=== PATIENT | female | born 1990 | race African-American/Black ===

== ENCOUNTER 2017-09-03 12:53 | Emergency (ER) | payer MEDICAID ==
[~2017-09-03] VITALS: Ht 165.1 cm; Wt 108.9 kg
[2017-09-03] MEDS ORDERED: MEDROXYPROGESTE10 MG PO (13:09)
[2017-09-03 13:15] VITALS: BP 161/105
[2017-09-03] MEDS ORDERED: Norco 5mg/325mg tab ORAL ONE (13:45)
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
[2017-09-03] MEDS ORDERED: NORCO 5-325 TA1 EACH ORAL (14:18)
[2017-09-03] MEDS ORDERED: IBUPROFEN600 MG ORAL (14:18)
[2017-09-03 15:59] VITALS: BP 154/88
--- NOTE | 2017-09-04 05:02 | Diagnostic Imaging Report ---
Indications: Pain Technique: 3 views of the left hand Comparison: None Findings: There is a nondisplaced minimally angulated fracture of the distal shaft of the third proximal phalanx, best visualized on the lateral view. There is an oblique lucency of the fifth proximal phalangeal shaft on the AP view. This area is obscured on the lateral view. The joint spaces are preserved. Impression: Positive for third proximal phalangeal fracture. This agrees with the emergency room preliminary report Possible fifth proximal phalangeal fracture, as well. Correlate with clinical findings. This finding was discussed by phone with Dr. Reina at the time of interpretation
== END 2017-09-03 15:30 | disposition home or self-care (01) ==
LOC: EMR 13:40
DX: S62.643A Nondisplaced fracture of proximal phalanx of left middle finger, initial encounter for closed fracture (principal); Y04.0XXA Assault by unarmed brawl or fight, initial encounter; Y92.89 Other specified places as the place of occurrence of the external cause
CPT/HCPCS: 99283

== ENCOUNTER 2017-09-04 08:27 | Emergency (ER) | payer MEDICAID ==
[~2017-09-04] VITALS: Ht 165.1 cm; Wt 108.9 kg
[~2017-09-04 08:27] MED LIST: IBUPROFEN600 MG ORAL; MEDROXYPROGESTE10 MG PO; NORCO 5-325 TA1 EACH ORAL
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
[2017-09-04 09:40] VITALS: BP 128/85
--- NOTE | 2017-09-04 13:03 | Diagnostic Imaging Report ---
Indication: Pain Technique: FOOT COMPLETE LT Comparison: None Findings: There is no acute fracture or dislocation. Joint spaces and bony alignment are preserved. Well-circumscribed density adjacent to the cuboid may represent sequela of remote trauma or accessory ossicle. No focal soft tissue defect is appreciated. No radiopaque foreign body seen. Impression: No acute fracture or dislocation.
== END 2017-09-04 09:40 | disposition home or self-care (01) ==
LOC: EMR 08:45
DX: S90.122A Contusion of left lesser toe(s) without damage to nail, initial encounter (principal); S62.643A Nondisplaced fracture of proximal phalanx of left middle finger, initial encounter for closed fracture; Y04.0XXA Assault by unarmed brawl or fight, initial encounter; Y92.9 Unspecified place or not applicable
CPT/HCPCS: 99283

== ENCOUNTER 2019-02-01 08:10 | Emergency (ER) | payer BC, MEDICAID, OTHER ==
[~2019-02-01] VITALS: Ht 165.1 cm; Wt 99.8 kg
[2019-02-01] MEDS ORDERED: NKM (08:20)
--- NOTE | 2019-02-01 08:21 | NUR ---
ED Nurse Note: PT WALKED IN TO ER TODAY FROM HOME. AOX4. PT C/O INTERMITTENT RIGHT FOOT BIG TOE PAIN, 5/10 X 3 MONTHS AGO WHEN SHE FELL DOWN STAIRS. FULL ROM OF EXTREMITY AND DIGITS, CIRCULATION AND SENSATION INTACT, CAP REFILL <3 SECONDS, MUSCLE STRENGHT 5/5, GAIT STEADY, SKIN CLEAN, DRY, AND INTACT.
--- NOTE | 2019-02-01 08:39 | Emergency Room Report ---
History of Present Illness General Chief Complaint: Lower Extremity Injury Source: Patient Present Illness HPI Patient presents to the emergency department today complaining of right great toe pain. Patient states that she tripped on it 3 months ago and since then has had intermittent episodes of pain over her right great toe. She denies any swelling or deformity of this time states that it did swell up when she first fell. No other injuries noted. Patient denies any ankle pain or knee pain. Symptoms noted to be mild to moderate. No other modifying factors. No other associated signs and symptoms. No other complaints were noted. Allergies: Coded Allergies: No Known Allergies (Unverified , 02/01/19) Patient History Past Medical History: none Past Surgical History: none Pertinent Family History: none Social History: Denies: smoking, alcohol use, drug use Last Menstrual Period: 01/12/19 Reviewed Nursing Documentation: PMH: Agreed; PSxH: Agreed Nursing Documentation-PMH Past Medical History: No Stated History Review of Systems All Other Systems: negative except mentioned in HPI Physical Exam Vital Signs Date Time Temp Pulse Resp B/P (MAP) Pulse Ox O2 Delivery O2 Flow Rate FiO2 02/01/19 08:15 98.6 70 16 97 Room Air Sp02 EP Interpretation: reviewed, normal General Appearance: normal inspection, well appearing, no apparent distress, alert Head: atraumatic Eyes: bilateral eye normal inspection ENT: normal ENT inspection, hearing grossly normal, normal voice Neck: normal inspection, full range of motion, supple, no bony tend Respiratory: normal inspection, lungs clear, normal breath sounds, no respiratory distress, no retraction, no wheezing Cardiovascular #1: regular rate, rhythm, no edema Gastrointestinal: normal inspection, normal bowel sounds, non tender, soft, no guarding, no hernia Genitourinary: no CVA tenderness Musculoskeletal: normal inspection, back normal, normal range of motion Neurologic: normal inspection, alert, responsive, speech normal Psychiatric: normal inspection, judgement/insight normal, mood/affect normal Skin: normal inspection, normal color, no rash Medical Decision Making Diagnostic Impression: Primary Impression: Toe pain, right ER Course Patient presents to the emergency department today complaint right foot pain. Differential considerations include fracture dislocation versus strain. Given his presentation for the x-rays were indicated. X-rays were noted to be negative. Given x-rays negative patient symptoms could be consistent with strain or arthritis. Recommend outpatient follow-up. Will provide anti- inflammatories. Patient is advised to follow up with primary doctor in 2-3 days and return the emergency room for any worsening symptoms and as needed. Other X-Ray Diagnostic Results Other X-Ray Diagnostic Results : X-Ray ordered: Right foot x-ray # of Views/Limited Vs Complete: 2 View Indication: Pain Interpretation: no dislocation, no soft tissue swelling, no fractures Impression: No acute disease Electronically Signed by: Electronically signed by Zay Garcia MD Last Vital Signs Date Time Temp Pulse Resp B/P (MAP) Pulse Ox O2 Delivery O2 Flow Rate FiO2 02/01/19 08:15 98.6 70 16 97 Room Air Status: unchanged Disposition: HOME, SELF-CARE Condition: Stable Scripts Ibuprofen* (MOTRIN*) 600 Mg Tablet 600 MG ORAL Q8H PRN for For Pain, #20 TAB 0 Refills Prov: Zya Garcia MD 02/01/19 Zay Garcia MD February 01, 2019 08:39
[2019-02-01] MEDS ORDERED: IBUPROFEN600 MG ORAL (09:12)
[2019-02-01 09:25] VITALS: BP 128/82
--- NOTE | 2019-02-01 09:25 | NUR ---
ED Nurse Note:pt given dc aci and script with work note. amb steady gait aware and agrees to follow up with md if contiuned discomfort.
--- NOTE | 2019-02-01 11:40 | Diagnostic Imaging Report ---
Indication: Foot Pain Comparison: None Findings: 3 views of the right foot were obtained. No acute fractures, malalignment, erosions or periostitis are identified. Soft tissues are unremarkable. Impression: No acute findings.
== END 2019-02-01 09:25 | disposition home or self-care (01) ==
LOC: EMR 08:48
DX: M25.571 Pain in right ankle and joints of right foot (principal)
CPT/HCPCS: 99283

== ENCOUNTER 2019-05-21 22:34 | Emergency (ER) | payer BC, MEDICAID ==
[~2019-05-21] VITALS: Ht 167.6 cm; Wt 113.4 kg
[~2019-05-21 22:34] MED LIST changes: +NKM
--- NOTE | 2019-05-21 22:45 | NUR ---
ED Nurse Note: Recieved pt from home, here with c/o right foot, itching and pain x 3 weeks, pt states she thinks was bit by bug, applied benadryl cream and started burning, pain at 7/10, denies any other discomforts or complaints.
--- NOTE | 2019-05-22 00:14 | Emergency Room Report ---
History of Present Illness General Chief Complaint: Pain Source: Patient Present Illness HPI Disclaimer: Please note that this report is being documented using [employer] technology. This can lead to erroneous entry secondary to incorrect interpretation by the dictating instrument. HPI: This a 28-year-old otherwise healthy female presenting for evaluation of itching over the left foot. Symptoms have been present for approximately 2 weeks. She can recall no specific injury, no skin breakdown, no erythema, no swelling and no drainage, discharge or bleeding. She notes worsening itching over the left foot after applying a Benadryl cream and now describes the sensation as burning. Denies pain in the ankle. Denies itching in other body parts. Denies any shortness of breath, wheezing, chest tightness or throat closure sensation. PMH: Denies PSH: Denies Allergies: Denies Social Hx: Occasional THC use. Allergies: Coded Allergies: No Known Allergies (Unverified , 02/01/19) Patient History Last Menstrual Period: 04/20/19 Now: No Nursing Documentation-PMH Past Medical History: No History, Except For Review of Systems All Other Systems: negative except mentioned in HPI Physical Exam Vital Signs Date Time Temp Pulse Resp B/P (MAP) Pulse Ox O2 Delivery O2 Flow Rate FiO2 05/21/19 22:36 98.4 91 14 142/66 (91) 98 Room Air General: Awake and alert, no acute distress HEENT: NC/AT. EOMI. Resp: Normal work of breathing. Skin: Intact. No abrasions, laceration or rash over the exposed skin. There is no erythema, edema, discharge or breakdown over the midfoot. MSK: Normal tone and bulk. Moving all extremities. No obvious deformity. 2+ PT and DP pulses. Brisk capillary refill in the lower extremities. No tenderness in the midfoot, over the anterior posterior aspect of the medial or lateral malleolus. Full range of motion on plantar and dorsiflexion. Neuro: Awake and alert. Mentating appropriately. Medical Decision Making Diagnostic Impression: Primary Impression: Foot pain ER Course 28-year-old female presents for evaluation of itching and burning of the left foot. X-ray was performed which shows no fracture or dislocation. Patient be treated with steroid cream and instructed to no longer use the Benadryl ointment that originally caused her symptoms. She is requesting a note for work which we will provide. She can follow-up with her PMD as an outpatient. Last Vital Signs Date Time Temp Pulse Resp B/P (MAP) Pulse Ox O2 Delivery O2 Flow Rate FiO2 05/21/19 22:36 98.4 91 14 142/66 (91) 98 Room Air Disposition: HOME, SELF-CARE Condition: Stable Scripts Hydrocortisone 2% Cream (ANTI-ITCH 2% CREAM) Y Cr 28 GM TP TID for 7 Days, GM Prov: Garland López MD 05/22/19 Referrals: NOT CHOSEN [facility]/,REFERRING (PCP) Garland López MD May 22, 2019 00:14
[2019-05-22] MEDS ORDERED: ANTI-ITCH28 G1 TP (00:39)
[2019-05-22 00:45] VITALS: BP 131/63
--- NOTE | 2019-05-22 00:50 | NUR ---
ER DISCHARGE NOTE: Patient is cleared to be discharged per ERMD, pt is aox4, on room air, with stable vital signs. pt was given dc and prescription instructions, pt was able to verbalize understanding, pt id band removed without complications. pt is able to ambulate with steady gait. pt took all belongings.
--- NOTE | 2019-05-22 00:52 | Diagnostic Imaging Report ---
EXAM: XR Left Foot Complete, 3 or More Views CLINICAL HISTORY: PAIN TECHNIQUE: Frontal, lateral and oblique views of the left foot. COMPARISON: No relevant prior studies available. FINDINGS: Bones/joints: Posterior calcaneal prominent enthesophyte. No acute fracture. No dislocation. Soft tissues: Unremarkable. No significant tibiotalar joint effusion. No radiopaque foreign body. IMPRESSION: No acute or healing fracture or malalignment.
[2019-05-22 00:55] VITALS: BP 131/63
== END 2019-05-22 00:55 | disposition home or self-care (01) ==
LOC: EMR 23:45
DX: M79.672 Pain in left foot (principal); L29.9 Pruritus, unspecified
CPT/HCPCS: 99283

== ENCOUNTER 2019-11-15 21:15 | Emergency (ER) | payer BC, MEDICAID ==
[~2019-11-15] VITALS: Ht 165.1 cm; Wt 97.5 kg
[~2019-11-15 21:15] MED LIST changes: +ANTI-ITCH28 G1 TP
--- NOTE | 2019-11-15 21:25 | NUR ---
ED Nurse Note: PT WALKED IN TO ED C/O HEAVY MENSTRUATION X2WKS. PT DENIES NVD, ABD PAIN. PT STATES FEELING WEAK AND DIZZY AT THE MOMENT. VSS, NAD.
[2019-11-15 21:30] VITALS: BP 142/89
--- NOTE | 2019-11-15 21:33 | NUR ---
ED Nurse Note: URINE COLLECTED AND SENT TO LAB
--- NOTE | 2019-11-15 21:41 | Emergency Room Report ---
History of Present Illness General Chief Complaint: Dizziness Source: Patient Present Illness HPI Is a 28-year-old female presents after persistent menses for approximately 2 weeks. She states that she been having irregular periods and had not had menses for several months previously. She denies taking control pills. Had previous been G1, . Denies any fever or prior history of gynecologic surgery other than therapeutic . Allergies: Coded Allergies: No Known Allergies (Unverified , 02/01/19) Patient History Past Medical History: see triage record Last Menstrual Period: currently on her period Now: No Reviewed Nursing Documentation: PMH: Agreed; PSxH: Agreed Nursing Documentation-PMH Past Medical History: No History, Except For Review of Systems All Other Systems: negative except mentioned in HPI Physical Exam Vital Signs Date Time Temp Pulse Resp B/P (MAP) Pulse Ox O2 Delivery O2 Flow Rate FiO2 11/15/19 21:20 98.8 91 16 142/89 (106) 98 Room Air 11/15/19 21:30 98 Sp02 EP Interpretation: reviewed, normal General Appearance: normal inspection, well appearing, no apparent distress, alert, GCS 15 Head: atraumatic ENT: normal ENT inspection, hearing grossly normal, normal voice Neck: normal inspection, full range of motion, supple, no bony tend Respiratory: normal inspection, lungs clear, normal breath sounds, no respiratory distress, no retraction, no wheezing Cardiovascular #1: regular rate, rhythm, no edema Gastrointestinal: normal inspection, normal bowel sounds, non tender, soft, no guarding, no hernia Genitourinary: no CVA tenderness Musculoskeletal: normal inspection, back normal, normal range of motion Neurologic: alert, motor strength/tone normal, electric sign assembler III-XII nml as tested, oriented x3, responsive, speech normal, normal inspection Psychiatric: normal inspection, judgement/insight normal, mood/affect normal Medical Decision Making Diagnostic Impression: Primary Impression: Metrorrhagia ER Course Patient presented for heavy menstrual bleeding.Differential diagnosis include was not limited to , coagulopathy, anemia, fibroids among others. Because of complexity of patient's case laboratory tests and imaging studies were ordered.Pelvic ultrasound showed no evidence of fibroids or ovarian cyst. Laboratory testing was unremarkable. 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 She states that she felt better and was wanted to leave. Patient declined control pills at this time. Patient was advised urinalysis was equivocal and will be contacted if culture comes back positive. Labs Test 11/15/19 21:35 11/15/19 21:45 Urine Color Pale yellow Urine Appearance Clear Urine pH 5 (4.5-8.0) Urine Specific [place] 1.010 (1.005-1.035) Urine Protein 3+ (NEGATIVE) Urine Glucose (UA) Negative (NEGATIVE) Urine Ketones Negative (NEGATIVE) Urine Blood 5+ (NEGATIVE) Urine Nitrite Negative (NEGATIVE) Urine Bilirubin Negative (NEGATIVE) Urine Urobilinogen Normal MG/DL (0.0-1.0) Urine Leukocyte Esterase 2+ (NEGATIVE) Urine RBC 5-10 /HPF (0 - 2) Urine WBC 2-4 /HPF (0 - 2) Urine Squamous Epithelial Cells Few /LPF (NONE/OCC) Urine Amorphous Sediment Few /LPF (NONE) Urine Bacteria Few /HPF (NONE) Urine HCG, Qualitative Negative (NEGATIVE) White Blood Count 5.8 K/UL (4.8-10.8) Red Blood Count 4.86 M/UL (4.20-5.40) Hemoglobin 14.0 G/DL (12.0-16.0) Hematocrit 43.8 % (37.0-47.0) Mean Corpuscular Volume 90 FL (80-99) Mean Corpuscular Hemoglobin 28.7 PG (27.0-31.0) Mean Corpuscular Hemoglobin Concent 31.8 G/DL (32.0-36.0) Red Cell Distribution Width 13.0 % (11.6-14.8) Platelet Count 357 K/UL (150-450) Mean Platelet Volume 7.7 FL (6.5-10.1) Neutrophils (%) (Auto) 51.2 % (45.0-75.0) Lymphocytes (%) (Auto) 38.2 % (20.0-45.0) Monocytes (%) (Auto) 6.5 % (1.0-10.0) Eosinophils (%) (Auto) 2.5 % (0.0-3.0) Basophils (%) (Auto) 1.6 % (0.0-2.0) Prothrombin Time 9.9 SEC (9.30-11.50) Prothromb Time International Ratio 0.9 (0.9-1.1) Activated Partial Thromboplast Time 29 SEC (23-33) Sodium Level 144 MMOL/L (136-145) Potassium Level 3.8 MMOL/L (3.5-5.1) Chloride Level 105 MMOL/L (98-107) Carbon Dioxide Level 27 MMOL/L (21-32) Anion Gap 12 mmol/L (5-15) Blood Urea Nitrogen 10 mg/dL (7-18) Creatinine 0.9 MG/DL (0.55-1.30) Estimat Glomerular Filtration Rate > 60 mL/min (>60) Glucose Level 87 MG/DL (74-106) Calcium Level 9.2 MG/DL (8.5-10.1) Total Bilirubin 0.3 MG/DL (0.2-1.0) Aspartate Amino Transf (AST/SGOT) 19 U/L (15-37) Alanine Aminotransferase (ALT/SGPT) 29 U/L (12-78) Alkaline Phosphatase 127 U/L (46-116) Total Protein 8.0 G/DL (6.4-8.2) Albumin 3.7 G/DL (3.4-5.0) Globulin 4.3 g/dL Albumin/Globulin Ratio 0.9 (1.0-2.7) Lipase 79 U/L (73-393) Thyroid Stimulating Hormone (TSH) 3.488 uiU/mL (0.358-3.740) Last Vital Signs Date Time Temp Pulse Resp B/P (MAP) Pulse Ox O2 Delivery O2 Flow Rate FiO2 11/15/19 21:30 98.8 91 16 142/89 98 Room Air 11/15/19 21:30 98 Status: improved Disposition: HOME, SELF-CARE Condition: Stable Stone Das MD Nov 15, 2019 21:41
--- NOTE | 2019-11-15 21:54 | NUR ---
ED Nurse Note: BLOOD DRAWN AND SENT TO LAB
[2019-11-15 22:00] LABS: APPEARANCE,URINE CLEAR; BILIRUBIN, URINE NEGATIVE (NEGATIVE); COLOR,URINE PALE YELLOW; GLUCOSE, URINE (UA) NEGATIVE (NEGATIVE); KETONES,URINE NEGATIVE (NEGATIVE); LEUKOCYTE ESTERASE ,URINE 2+ (NEGATIVE); NITRITE,URINE NEGATIVE (NEGATIVE); PH,URINE 5 (4.5-8.0); PROTEIN,URINE 3+ (NEGATIVE); UROBILINOGEN,URINE NORMAL MG/DL (0.0-1.0)
--- NOTE | 2019-11-15 22:18 | NUR ---
ED Nurse Note: PT WENT FOR US
[2019-11-15 22:37] LABS: INR 0.9 (0.9-1.1)
[2019-11-15 22:40] LABS: ANION GAP 12 mmol/L (5-15); BLOOD UREA NITROGEN 10 mg/dL (7-18); CALCIUM 9.2 MG/DL (8.5-10.1); CARBON DIOXIDE 27 MMOL/L (21-32); CHLORIDE 105 MMOL/L (98-107); CREATININE 0.9 MG/DL (0.55-1.30); POTASSIUM 3.8 MMOL/L (3.5-5.1); SODIUM 144 MMOL/L (136-145)
[2019-11-15 22:41] LABS: BASOPHILS % (AUTO) 1.6 % (0.0-2.0); EOSINOPHILS % (AUTO) 2.5 % (0.0-3.0); HEMATOCRIT 43.8 % (37.0-47.0); LYMPHOCYTES % (AUTO) 38.2 % (20.0-45.0); MEAN CORPUSCULAR VOLUME 90 FL (80-99); MONOCYTES % (AUTO) 6.5 % (1.0-10.0); NEUTROPHILS % (AUTO) 51.2 % (45.0-75.0); PLATELET COUNT 357 K/UL (150-450); RED BLOOD COUNT 4.86 M/UL (4.20-5.40); WHITE BLOOD COUNT 5.8 K/UL (4.8-10.8)
--- NOTE | 2019-11-15 22:51 | NUR ---
ED Nurse Note: pt back from [facility]
[2019-11-15 22:53] LABS: ALANINE AMINOTRANSFERASE 29 U/L (12-78); ALBUMIN 3.7 G/DL (3.4-5.0); ALBUMIN/GLOBULIN RATIO 0.9 (1.0-2.7); ALKALINE PHOSPHATASE 127 U/L (46-116); ASPARTATE AMINO TRANSFERASE 19 U/L (15-37); BILIRUBIN,TOTAL 0.3 MG/DL (0.2-1.0)
--- NOTE | 2019-11-15 23:09 | Diagnostic Imaging Report ---
Indication: 28-year-old female. Lower abdominal and pelvic pain Technique: Grayscale and duplex Doppler imaging of the pelvis performed utilizing a transabdominal and endovaginal scan. Comparison: None Findings: The size, contour, and configuration of the uterus is within normal limits. The endometrium is uniformly echogenic and normal in thickness. Endometrium is 2.7 mm. Uterus measures 6.7 x 4.5 x 3.4 cm. Right ovary appear normal with good dopplerable blood flow measuring 2.1 x 2.1 x 1.7 cm. Left ovary is not seen. There is no significant free fluid identified. IMPRESSION: Negative pelvic ultrasound. No acute findings.
[2019-11-15 23:20] VITALS: BP 142/89
--- NOTE | 2019-11-15 23:20 | NUR ---
ER DISCHARGE NOTE: Patient is cleared to be discharged per ERMD, pt is aox4, on room air, with stable vital signs. pt was given dc instructions, pt was able to verbalize understanding, pt id band and iv site removed without complications. pt is able to ambulate with steady gait. pt took all belongings.
== END 2019-11-15 23:20 | disposition home or self-care (01) ==
LOC: EMR 22:42
DX: N92.1 Excessive and frequent menstruation with irregular cycle (principal)
CPT/HCPCS: 36415; 76830; 76856; 80053; 81003; 81025; 83690; 84443; 85025; 85610; 85730; 96360; J7030; Z7502; 99284

== ENCOUNTER 2020-09-21 17:19 | Emergency (ER) | payer MEDICAID ==
[~2020-09-21] VITALS: Ht 162.6 cm; Wt 108.9 kg
[2020-09-21 17:40] VITALS: BP 140/92
[2020-09-21 18:26] LABS: APPEARANCE,URINE SLIGHTLY CLOUDY; BILIRUBIN, URINE NEGATIVE (NEGATIVE); COLOR,URINE PALE YELLOW; GLUCOSE, URINE (UA) NEGATIVE (NEGATIVE); KETONES,URINE NEGATIVE (NEGATIVE); LEUKOCYTE ESTERASE ,URINE 3+ (NEGATIVE); NITRITE,URINE NEGATIVE (NEGATIVE); PH,URINE 6 (4.5-8.0); PROTEIN,URINE NEGATIVE (NEGATIVE); UROBILINOGEN,URINE NORMAL MG/DL (0.0-1.0)
--- NOTE | 2020-09-21 18:35 | Emergency Room Report ---
History of Present Illness General Chief Complaint: Female Urogenital Problems Source: Patient Present Illness HPI 29-year-old female with no signal past medical history here complaining of 2 days of dysuria, and avoid clumpy vaginal discharge. Denies any sexually active. Denies hematuria. Denies fever and chills, nausea vomiting, chest pain, shortness of breath, headache and dizziness. Denies . Has not taken medication for symptom relief. Allergies: Coded Allergies: No Known Allergies (Unverified , 02/01/19) COVID-19 Screening Contact w/high risk pt: No Experienced COVID-19 symptoms?: No COVID-19 Testing performed FUR FARMER: No Patient History Past Medical History: see triage record Past Surgical History: none Pertinent Family History: none Last Menstrual Period: 03/2020 Now: No Immunizations: UTD Reviewed Nursing Documentation: PMH: Agreed; PSxH: Agreed Nursing Documentation-PMH Past Medical History: No History, Except For Review of Systems All Other Systems: negative except mentioned in HPI Physical Exam Vital Signs Date Time Temp Pulse Resp B/P (MAP) Pulse Ox O2 Delivery O2 Flow Rate FiO2 09/21/20 17:30 98.6 100 15 140/92 (108) 98 Room Air Sp02 EP Interpretation: reviewed, normal General Appearance: no apparent distress, alert, GCS 15, non-toxic Head: normocephalic, atraumatic Eyes: bilateral eye normal inspection, bilateral eye PERRL ENT: hearing grossly normal, normal pharynx, no angioedema, normal voice Neck: full range of motion, supple/symm/no masses Respiratory: chest non-tender, lungs clear, normal breath sounds, speaking full sentences Cardiovascular #1: regular rate, rhythm, no edema Cardiovascular #2: 2+ carotid (R), 2+ carotid (L), 2+ radial (R), 2+ radial (L), 2+ dorsalis pedis (R), 2+ dorsalis pedis (L) Gastrointestinal: soft Genitourinary: no CVA tenderness Musculoskeletal: back normal Neurologic: alert, oriented Psychiatric: judgement/insight normal, memory normal, mood/affect normal, no suicidal/homicidal ideation Skin: no rash Lymphatic: no adenopathy Medical Decision Making PA Attestation ALL Diagnosis and treatment plan reviewed and discussed with my supervising physician Dr. Monet Diagnostic Impression: Primary Impression: UTI (urinary tract infection) Additional Impression: Vaginitis ER Course 29-year-old female with no signal past medical history here complaining of 2 days of dysuria, and avoid clumpy vaginal discharge. Denies any sexually active. Denies hematuria. Denies fever and chills, nausea vomiting, chest pain, shortness of breath, headache and dizziness. Denies . Has not taken medication for symptom relief. Ddx considered but are not limited to: UTI, pyelonephritis, urinary incontinence, prolapsed bladder Vital signs: are WNL, pt. is afebrile H&PE are most consistent with: UTI, vaginitis ORDERS: UA, urine cx, urine test, Keflex, Pyridium, diflucan, Flagyl ED INTERVENTIONS: None required at this time. DISCHARGE: At this time pt. is stable for d/c to home. Will provide printed patient care instructions, and any necessary prescriptions. Care plan and follow up instructions have been discussed with the patient prior to discharge. Take medication as directed, follow primary care provider, if worsening symptoms retu rn to the emergency room Last Vital Signs Date Time Temp Pulse Resp B/P (MAP) Pulse Ox O2 Delivery O2 Flow Rate FiO2 09/21/20 17:40 98.6 78 15 140/92 98 Room Air Disposition: HOME, SELF-CARE Condition: Stable Scripts Phenazopyridine Hcl* (PYRIDIUM*) 200 Mg Tablet 200 MG ORAL THREE TIMES A DAY for 2 Days, #6 TAB 0 Refills Prov: Omid Lama 09/21/20 Metronidazole* (FLAGYL*) 500 Mg Tablet 500 MG ORAL BID for 7 Days, #14 TAB Prov: Omid Lama 09/21/20 Fluconazole (FLUCONAZOLE) 150 Mg Tablet 150 MG ORAL ONCE for 1 Day, #1 TAB 0 Refills Prov: Omid Lama 09/21/20 Cephalexin* (KEFLEX*) 500 Mg Capsule 500 MG ORAL EVERY 12 HOURS for 7 Days, #14 CAP 0 Refills Prov: Omid Lama 09/21/20 Referrals: NOT CHOSEN IPA/,REFERRING (PCP) Patient Instructions: Vaginal Yeast Infection, Adult, Urinary Tract Infection Additional Instructions: Take medication as directed, follow primary care provider, if worsening symptoms return to the emergency room Omid Lama Sep 21, 2020 18:35
[2020-09-21] MEDS ORDERED: PHENAZOPYRIDIN200 MG ORAL (18:37)
[2020-09-21] MEDS ORDERED: CEPHALEXIN500 MG ORAL (18:37)
[2020-09-21] MEDS ORDERED: FLUCONAZOLE150 MG ORAL (18:37)
[2020-09-21] MEDS ORDERED: METRONIDAZOLE500 MG ORAL (18:37)
[2020-09-21 18:45] VITALS: BP 140/92
== END 2020-09-21 18:45 | disposition home or self-care (01) ==
LOC: EMR 17:48
DX: N39.0 Urinary tract infection, site not specified (principal); N76.0 Acute vaginitis
CPT/HCPCS: 81003; 81025; 87086; 87181; Z7502; 99283